=== PATIENT | male | born 1975 | race Two or more races ===

== ENCOUNTER 2025-01-03 21:02 | Emergency (ER) | payer SELFPAY ==
[2025-01-03 21:04] VITALS: BMI 30.4
[2025-01-03 21:58] VITALS: BP 174/94; PULSE 76; RESP 18; TEMP 37.4; O2SAT 99
--- NOTE | 2025-01-03 22:18 | XR_ITS ---
Examination: CT soft tissue neck, with intravenous contrast. 2-D coronal reconstructions. 2-D sagittal reconstructions. Date and time of exam :January 04, 2025, 12:00 AM INDICATIONS:. Left-sided neck swelling secondary to spider bite today CTDI: vol (mGy):11.6. DLP: (mGycm):361. Technique: 1.25 mm axial sections of the neck of the obtained. Coronal and sagittal reconstructions have been obtained. Intravenous contrast administered 50 cc Isovue 370. Low dose protocols were performed. One or more of the following dose reduction techniques were used; automated exposure control, adjustment of the mA and/or KV according to patient size, use of iterative reconstruction technique. Findings: Maxillary antra are clear Symmetrical nasopharynx oropharynx, no tonsillar abscess Nonspecific left carotid triangle lymph nodes Marked inflammatory change external to the left maxilla and mandible which is secondary to multiple dental caries involving the left mandibular incisors and premolars with cortical bone destruction involving the mandible, suspicious for early abscess in the soft tissue 15 x 8 mm IMPRESSION: Multiple left mandibular dental caries with prominent cellulitis pattern and early abscess as above
--- NOTE | 2025-01-03 22:21 | PD.EDRME ---
Rapid Medical Screening Exam RME Arrival date/time: 01/03/25 21:02 Chief Complaint: Skin/Abscess/Foreign Body Time Seen by Provider: 01/03/25 22:07 Vital signs: Vital Signs Temperature 99.4 F 01/03/25 21:58 Pulse Rate 76 01/03/25 21:58 Respiratory Rate 18 01/03/25 21:58 Blood Pressure 174/94 H 01/03/25 21:58 Pulse Oximetry (%) 99 01/03/25 21:58 Oxygen Delivery Method Room Air 01/03/25 21:58 RME Narrative: 49-year-old male patient came in for evaluation regarding swelling to the left submandibular area since yesterday severity moderate. No fever noted
[2025-01-03 23:03] LABS: Lactate (Lactic Acid) 1.5 mMol/L (0.4-2.0)
[2025-01-03] MEDS: CLINDAMYCIN/NS 600 MG IVPB 600 MG/50 ML BAG 100 MG IV (23:03)
[2025-01-03 23:05] LABS: Basophils # (Auto) 0.1 Thou/mm3 (0.0-0.2); Basophils % (Auto) 1 % (0-2.5); Eosinophils # (Auto) 0.2 Thou/mm3 (0.0-0.5); Eosinophils % (Auto) 1 % (0-10); Hematocrit 41.7 % (41.0-53.0); Hemoglobin 13.8 g/dL (13.5-16.0); Immature Granulocytes Auto 0.05 Thou/mm3 (0.00-0.00); Lymphocytes # (Auto) 2.6 Thou/mm3 (1.0-4.8); Lymphocytes % (Auto) 18 % (10-50); Mean Corpuscular HGB Conc 33.1 g/dl (31.0-37.0); Mean Corpuscular Hemoglobin 29.7 pg (25.0-35.0); Mean Corpuscular Volume 90 fL (80-100); Monocytes # (Auto) 1.6 Thou/mm3 (0.0-0.8); Monocytes % (Auto) 11 % (0-12); Neutrophils # (Auto) 9.7 Thou/mm3 (1.8-7.7); Neutrophils % (Auto) 68 % (37-80); Nucleated Red Blood Cell # 0.00 Thou/mm3 (0.00-0.00); Nucleated Red Blood Cell % 0 /100 WBC (0); Platelet Count 334 Thou/mm3 (140-440); RDW Standard Deviation 41.2 fL (35.1-43.9); Red Blood Count 4.64 Miln/mm3 (4.50-5.90); White Blood Count 14.2 Thou/mm3 (3.8-10.6)
[2025-01-03 23:15] VITALS: BP 179/104; PULSE 71; RESP 20; TEMP 37.3; O2SAT 97
[2025-01-03 23:31] LABS: Alanine Aminotransferase 22 U/L (10-49); Albumin, Serum 4.5 gm/dL (3.5-5.0); Albumin/Globulin Ratio 1.9 (1.2-2.2); Alkaline Phosphatase 114 U/L (46-116); Anion Gap 6 (7-16); Aspartate Amino Transferase 21 U/L (0-34); BUN/Creatinine Ratio 10 Ratio (12-20); Bilirubin,Total 0.6 mg/dL (0.3-1.2); Blood Urea Nitrogen 9 mg/dL (9-23); Calcium 9.7 mg/dL (8.3-10.6); Calcium (Corrected) 9.7 mg/dL (8.5-10.1); Carbon Dioxide 27.9 mMol/L (20.0-31.0); Chloride 104 mMol/L (98-107); Creatinine (Component) 0.9 mg/dL (0.6-1.3); Estimated Creatinine Clearance 111.0 mL/min (>60); Globulin 2.4 gm/dL (2.3-3.5); Glucose 90 mg/dL (74-106); Osmolality,Calculated 274 (275-295); Potassium 3.4 mMol/L (3.4-5.1); Procalcitonin 0.05 ng/ml (0.0-0.49); Sodium 138 mMol/L (136-145); Total Protein 6.9 gm/dL (5.7-8.2); eGFR > 60 See Note
--- NOTE | 2025-01-03 23:52 | PD.EDSKIN ---
ED Skin Abcess FB-RME/HPI General Chief complaint: Skin/Abscess/Foreign Body Stated complaint: FACIAL SWELLING X2 DAYS Time Seen by Provider: 01/03/25 22:07 Arrival date/time: 01/03/25 21:02 RME / HPI RME / HPI narrative: 49-year-old male patient came in for evaluation regarding swelling to the left submandibular area since yesterday severity moderate. No fever noted Dr. Mckeon?s Main ED Evaluation: 49yo male presents to the ED for a chief complaint of left facial/neck swelling x yesterday. Patient started taking a new medication 2 days ago (does not know what it is) and has since developed left facial/neck swelling. Patient denies any fever, chills, shortness of breath, dental pain, or any other associated symptoms. Otherwise, he does not take any other medications. Related Data Previous Rx's ?Medication ?Instructions ?Recorded Hydrocodone/Acetaminophen * (NORCO 1 tab PO Q6H PRN pain #14 tabs 05/26/17 5/325 *) Lactobacillus rhamnosus GG 10 1 cap PO BID #14 caps 05/26/17 billion cell capsule (Culturelle) levofloxacin 500 mg tablet 1 tab PO QDAY #14 tabs 06/10/17 (Levaquin) amoxicillin 875 mg-potassium 1 tab PO BID #14 tabs 12/16/23 clavulanate 125 mg tablet amoxicillin 500 mg-potassium 1 tab PO TID #10 tabs 01/04/25 clavulanate 125 mg tablet (Augmentin) hydrocodone 10 mg-acetaminophen 1 tab PO Q6H PRN pain #30 tabs 01/04/25 325 mg tablet hydrocodone 10 mg-acetaminophen 1 tab PO Q6H PRN pain #30 tabs 01/04/25 325 mg tablet Allergies Allergy/AdvReac Type Severity Reaction Status Date / Time NKA* Allergy Uncoded 12/16/23 18:46 Review of Systems Review of Systems Systems Reviewed: All systems reviewed, normal except as documented Past Medical History Past Medical History CARDIAC: Negative Cardiac Disorders RESPIRATORY: Negative Asthma GENITOURINARY: Negative Renal Disease ENDOCRINE: Negative Diabetes Mellitus Type 2 HEMATOLOGIC: Negative Sickle Cell Disease Social History SMOKING STATUS: Current every day smoker ED Exam Narrative Physical exam: facial swelling to the left side of the lower lip extending to the left cheek and left submandibular region. No overlying erythema. No fluctuance. Generally patient is alert oriented x 3 and in no obvious distress, heart regular rate and rhythm lungs clear auscultation equal bilaterally abdomen soft bowel sounds present nondistended nontender oropharynx shows the floor of mouth to be soft without evidence for bedbugs angiogram. Course Quality Measures none Orders Category Date Time Status CT Screening NOW Care 01/03/25 22:[address] soft tissue neck w con Stat Exams 01/03/25 22:18 Taken Blood Culture (Lab) Stat Lab 01/03/25 22:44 Received CBC [CBC] Stat Lab 01/03/25 22:44 Completed CMP [Comprehensive Metabolic Panel] Stat Lab 01/03/25 22:44 Completed Lactate (Lactic Acid) Stat Lab 01/03/25 22:44 Completed Procalcitonin Stat Lab 01/03/25 22:44 Completed Clindamycin/Ns 600 mg Ivpb [Cleocin/Ns Ivpb] Med 01/03/25 22:20 Discontinued 600 mg in 50 ml IV X1 Dexamethasone Inj [Decadron Inj] 10 mg Med 01/04/25 00:11 Discontinued Sodium Chloride 0.9% [Ns] 100 ml IV X1 DiphenhydrAMINE INJ [Benadryl Inj] Med 01/04/25 00:11 Discontinued 50 mg IVP X1 ONE Famotidine Inj [Pepcid Inj] Med 01/04/25 00:11 Discontinued 20 mg IVP X1 ONE Morphine Inj Med 01/04/25 00:44 Discontinued 4 mg IVP X1 ONE cefTRIAXone/D5w 1gm IV premix [Rocephin/D5w 1gm IV Med 01/04/25 00:42 Active premix] 1 gm in 50 ml IV X1 Vital Signs Vital signs: Vital Signs Temperature 99.4 F 01/03/25 21:58 Pulse Rate 76 01/03/25 21:58 Respiratory Rate 18 01/03/25 21:58 Blood Pressure 174/94 H 01/03/25 21:58 Pulse Oximetry (%) 99 01/03/25 21:58 Oxygen Delivery Method Room Air 01/03/25 21:58 Skin / Abscess / Foreign Body MDM Narrative MDM Narrative:: Scribe Attestation: 01/03/25 - Jess Herrera am scribing for and in the presence of Dr. Mckeon. Patient has swelling to the left submandibular region of the jaw as well as the left lower lip. Patient has a very soft supple form of mouth. No evidence for Darrion's angina. Patient was denying tooth pain however the CT scan of the neck with IV contrast showed a periapical abscess around the root of the left mandibular premolar with adjacent phlegmonous changes and surrounding cellulitis. Patient has already received clindamycin 600 mg IV antibiotic on Rocephin 1 g IV. Patient for the swelling also received Decadron 10 mg IV as well as Benadryl 50 mg IV and Pepcid 20 mg IV. Patient received morphine 4 mg IV for pain. He will be discharged on Augmentin and [place] to be taken as prescribed. He has follow-up with a dentist within the next week. Return to the ER as needed or if condition worsens. Patient data External records reviewed:: [facility] previous records (Per chart review, patient has no relevant previous ED visits.) Clinical information provided by:: patient Social determinants that could affect healthcare access:: none Patient has the following chronic illnesses:: none How is presenting disease/condition affected by chronic disease/condition?: no chronic disease Evaluation data The following diagnostics were reviewed and interpreted by me:: lab results and radiology exam(s) Lab and/or radiology exams considered but not ordered:: none Interpretation Summary: [facility] Preliminary Report Draft Patient: JAGDEEP UNGER Record#: [id number] Birthdate: 1975 Age/Sex: 49 / M Location: [facility] Attending Dr: Ordering Physician: Date of Service: Procedure(s): Accession Number(s): cc: ~ CT scan of the neck with intravenous contrast (axial sections with sagittal and coronal reformats) January 03, 2025 2359 hours Clinical History: Left submandibular swelling, rule out abscess Comparison: None Findings: There is periapical lucency involving the left mandibular premolar tooth with adjacent 1.7 x 0.8 cm rim enhancing hypodensity (axial image 53/96). There is subcutaneous soft tissue swelling and edema over the left mandible extending into the face and submental region. There are multiple missing teeth in the upper and lower jaw with evidence of dental caries in several teeth. There are prominent left submandibular lymph nodes. The nasopharynx, oropharynx, hypopharynx, supraglottic and infraglottic larynx, vocal cords and upper trachea are unremarkable. The epiglottis and aryepiglottic folds appear unremarkable. The parotid and submandibular salivary glands are unremarkable. The thyroid is unremarkable. The vessels of the neck are well opacified. No filling defect is seen. Mild degenerative changes are seen in the cervical spine. There is fusion at the atlantooccipital joints. The visualized lung apices are clear. Impression: Periapical abscess around the root of the left mandibular premolar tooth with adjacent phlegmonous inflammation versus evolving abscess and surrounding cellulitis. Other findings as described above. Suggest clinical correlation and follow up accordingly. Discussion Details: Results verbally communicated to : Dr. Mckeon at 12:36 AM 01/04/2025 Report Electronically Signed By: Rico Tomlin 01/04/2025 12:49:33 AM Medications / Prescriptions Medications or Prescriptions considered but not ordered:: none Medication administrations:: Medication Administration History Ceftriaxone Sodium/Dextrose (Rocephin/D5w 1gm Iv Premix) 1 gm in 50 mls @ 100 mls/hr IV X1 ONE Stop: 01/04/25 01:11 Discontinued Medications Diphenhydramine HCl (Diphenhydramine Inj 50 Mg/Ml Vial) 50 mg IVP X1 ONE Stop: 01/04/25 00:12 Last Admin: 01/04/25 00:22 Dose: 50 mg Documented By: DT Famotidine (Famotidine Inj 10 Mg/Ml Vial 2 Ml) 20 mg IVP X1 ONE Stop: 01/04/25 00:12 Last Admin: 01/04/25 00:25 Dose: 20 mg Documented By: DT Clindamycin/Sodium Chloride (Cleocin/Ns Ivpb) 600 mg in 50 mls @ 100 mls/hr IV X1 ONE Stop: 01/03/25 22:49 Last Infusion: 01/03/25 23:33 Dose: Infused Documented By: Admin: 01/03/25 23:03 Dose: 100 mls/hr Documented By: EF Dexamethasone Sodium Phosphate (10 mg/ Sodium Chloride) 101 mls @ 101 mls/hr IV X1 ONE Stop: 01/04/25 00:12 Last Admin: 01/04/25 00:23 Dose: 101 mls/hr Documented By: DT Morphine Sulfate (Morphine Sulf Inj 10 Mg/Ml Vial) 4 mg IVP X1 ONE Stop: 01/04/25 00:45 see above Consultations Consultation(s) initiated? (list below): No Diagnosis Skin/Abscess Differential Diagnosis: abscess of skin or subcutaneous tissue, allergic reaction to drug, cellulitis and other (angioedema) Most likely diagnosis given after review of the tests above:: see clinical impression below Admission Indicated Admission indicated?: not indicated Admission Request Was there a request for admission?: No Disposition Plan Disposition Plan: Discharge Discharge Attestation Discharge Attestation: The patient and all family members were given an opportunity to ask questions and understood the discharge instructions. Discharge instructions specifically effects, indications for sooner follow up or return to the emergency department, and the expected course of current diagnosis. Patient condition: Stable Discharge Plan Prescriptions/Referrals Prescriptions/Med Rec: New amoxicillin-pot clavulanate [Augmentin] 500-125 mg tablet 1 tab PO TID Qty: 10 0RF hydrocodone-acetaminophen 10-325 mg tablet 1 tab PO Q6H MDD 4 tablets PRN (Reason: pain) Qty: 30 0RF hydrocodone-acetaminophen 10-325 mg tablet 1 tab PO Q6H MDD 4 tabs PRN (Reason: pain) Qty: 30 0RF No Action Lactobacillus rhamnosus GG [Culturelle] 1 CAP capsule 1 cap PO BID Qty: 14 0RF Hydrocodone/Acetaminophen * (NORCO 5/325 *) 1 TAB tablet 1 tab PO Q6H PRN (Reason: pain) Qty: 14 0RF levofloxacin [Levaquin] 500 MG tablet 1 tab PO QDAY Qty: 14 0RF Rx Instructions: FOR INFECTION amoxicillin-pot clavulanate 875-125 mg tablet 1 tab PO BID Qty: 14 0RF Referrals: No Primary/Family,Physician [Primary Care Provider] - In 1 week Problem List Clinical Impression: Periapical abscess with facial involvement Patient/Caregiver Discharge Instructions Additional Instructions: Medication as prescribed. You must see a dentist within the next 1 to 2 weeks. Return to ER as needed or if condition worsens. Print Language: Luxembourger
[2025-01-04] MEDS: DEXAMETHASONE INJ 10 MG in SODIUM CHLORIDE 0.9% 100 ML 101 MG IV (00:23)
[2025-01-04] MEDS: FAMOTIDINE INJ 10 MG/ML VIAL 2 ML 20 MG IVP (00:25)
--- NOTE | 2025-01-04 00:49 | PRELIM_ITS ---
CT scan of the neck with intravenous contrast (axial sections with sagittal and coronal reformats) January 03, 2025 2359 hours Clinical History: Left submandibular swelling, rule out abscess Comparison: None Findings: There is periapical lucency involving the left mandibular premolar tooth with adjacent 1.7 x 0.8 cm rim enhancing hypodensity (axial image 53/96). There is subcutaneous soft tissue swelling and edema over the left mandible extending into the face and submental region. There are multiple missing teeth in the upper and lower jaw with evidence of dental caries in several teeth. There are prominent left submandibular lymph nodes. The nasopharynx, oropharynx, hypopharynx, supraglottic and infraglottic larynx, vocal cords and upper trachea are unremarkable. The epiglottis and aryepiglottic folds appear unremarkable. The parotid and submandibular salivary glands are unremarkable. The thyroid is unremarkable. The vessels of the neck are well opacified. No filling defect is seen. Mild degenerative changes are seen in the cervical spine. There is fusion at the atlantooccipital joints. The visualized lung apices are clear. Impression: Periapical abscess around the root of the left mandibular premolar tooth with adjacent phlegmonous inflammation versus evolving abscess and surrounding cellulitis. Other findings as described above. Suggest clinical correlation and follow up accordingly. Discussion Details: Results verbally communicated to : Dr. Mckeon at 12:36 AM 01/04/2025 Report Electronically Signed By: Rico Tomlin 01/04/2025 12:49:33 AM [EST]
[2025-01-04] MEDS: MORPHINE SULF INJ 10 MG/ML VIAL 4 MG IVP (00:53)
[2025-01-04 01:00] VITALS: BP 164/101; PULSE 62; RESP 14; TEMP 37; O2SAT 99
[2025-01-04] MEDS: cefTRIAXone/D5w 1gm IV premix 1 GM/50 ML BAG IV (01:37)
[2025-01-04 03:14] VITALS: BP 147/96; PULSE 67; RESP 14; TEMP 37; O2SAT 99
[2025-01-04 04:36] VITALS: PULSE 65; RESP 14; TEMP 37; O2SAT 99
== END 2025-01-04 04:36 | disposition home or self-care (01) ==
LOC: SERX 22:21
PROVIDERS: Nurse Practitioner Family; Emergency Provider Emergency Medicine
DX: K04.7 Periapical abscess without sinus (principal)
CPT/HCPCS: 36415; 70491; 80053; 83605; 84145; 85025; 87040; 96365; 96366; 96375; 99283; A4649; J0696; J1100; J1200; J2270; J3490; J7050; Q9967; S0077; J0737